=== PATIENT | male | born 1990 ===

== ENCOUNTER 2020-12-10 08:40 | Outpatient (CLI) | payer OTHER ==
[~2020-12-10 08:40] MED LIST: HYZAAR 100-251 UDTAB PO; [UNRECOGNIZED DRUG - OTHER]
== END 2020-12-10 08:41 | disposition home or self-care (01) ==
LOC: PPH VACUNA 08:40
DX: Z23 Encounter for immunization (principal)

== ENCOUNTER 2020-12-31 08:00 | Outpatient (CLI) | payer OTHER | END 2020-12-31 08:30 | disposition home or self-care (01) | LOC: PPH VACUNA 08:00 | DX: Z23 Encounter for immunization (principal) ==

== ENCOUNTER 2021-10-13 08:00 | Outpatient (CLI) | payer OTHER | END 2021-10-13 08:30 | disposition home or self-care (01) | LOC: PPH VACUNA 08:00 | PROVIDERS: ATTEND Emergency Medicine Pediatric Emergency Medicine | DX: Z23 Encounter for immunization (principal) ==